=== PATIENT | female | born 1985 | race Caucasian/White ===

== ENCOUNTER 2016-07-01 16:44 | Inpatient (IN) | payer OTHER ==
[~2016-07-01] VITALS: Ht 149.9 cm; Wt 83.9 kg
[2016-07-01] MEDS: Misoprostol 25 mCg/0.25 Tablet VAGINAL SCH ×2 (01:27→20:24)
[2016-07-01 17:10] LABS: Mean Corpuscular Hemoglobin 27.7 pg (27.0-35.0); Mean Corpuscular Volume 84.2 fL (81-100)
[2016-07-01] MEDS ORDERED: fentaNYL-PF 50 mCg/mL 2 mL Inj IVPUSH PRN (19:30)
[2016-07-01] MEDS ORDERED: Oxytocin 10 Unit/mL Inj IM PRN (19:30)
[2016-07-01] MEDS ORDERED: Sodium Chloride LOK Flush 10 mL Syringe IVFLUSH PRN (19:30)
[2016-07-01] MEDS ORDERED: Oxytocin 30 Units/500 mL LR 30 UNITS in IV Premix 1 EACH IV PRN (19:30)
[2016-07-01] MEDS ORDERED: Lactated Ringer's 1,000 ML IV PRN (19:30)
[2016-07-01] MEDS ORDERED: diphenhydrAMINE 50 mg Capsule PO PRN (19:30)
[2016-07-01] MEDS ORDERED: Hemorrhage Kit, Post Partum XX ONE (19:30)
[2016-07-01] MEDS ORDERED: Methylergonovine 0.2 mg/mL Inj IM PRN (19:30)
[2016-07-01] MEDS ORDERED: Ondansetron 2 mg/mL 2 mL Inj IVPUSH PRN (19:30)
[2016-07-01] MEDS ORDERED: Carboprost 250 mCg/mL Inj IM PRN (19:30)
[2016-07-01 19:58] LABS: Mean Corpuscular Hemoglobin 27.9 pg (27.0-35.0); Mean Corpuscular Volume 83.9 fL (81-100)
[2016-07-01] MEDS ORDERED: PREN1TAB25 PO (20:01)
[2016-07-02] MEDS: Misoprostol 25 mCg/0.25 Tablet VAGINAL SCH ×2 (01:27→04:55)
[2016-07-02] MEDS: Lactated Ringer's 1,000 ML IV SCH ×3 (03:30→20:31)
[2016-07-02 08:21] LABS: Mean Corpuscular Hemoglobin 27.5 pg (27.0-35.0); Mean Corpuscular Volume 83.7 fL (81-100)
--- NOTE | 2016-07-02 08:49 | PCM.HPOB ---
Subjective Date of Service: Jul 02, 2016 Referring Provider: Admitting Physician: Andreina Ugalde MD Primary Care Physician: Andreina Ugalde MD Attending Physician: Andreina Ugalde MD Chief Complaint Preeclampsia, 37 weeks gestation History of Present History of Present Illness Carmen is a 31 year-old female at 37wks 1days per first trimester ultrasound with a history of elevated blood pressure starting at 14 weeks . A 24 hour urine protein was negative at that time and the patient's BP attributed to chronic hypertension or white coat hypertension without superimposed preeclampsia. She is not taking anything to treat hypertension. She remained asymptomatic her with fluctuating blood pressure readings and scheduled for bi-weekly NSTs and biophysical profile every two weeks. However, a UA in clinic showed proteniuria and a protein/creatinine ratio was consistent with superimposed pre-eclampsia. Subsequently she was scheduled for induction on 07/02/16. Past Medical History Obstetrical History: Previous spontaneous at 5 weeks gestation Gynecologic History: Describes having regular menses, previously on oral control pills Medical History: Denies any other medical conditions other than preeclampsia Surgical History: Denies any surgical history Social History: Lives with . Hx Tobacco Use: No Smoking Status: Never Smoker Hx Alcohol Use: No Hx Substance Use: No Past Family History Family History Maternal grandfather had cardiovascular disease Maternal grandmother had renal cell cancer at 76 years old Mother hypertension Paternal aunt had breast cancer Paternal grandfather colon cancer Living Arrangement: with Family Genetic Screening/Counseling Baby father-had child w defect: No Review of Systems Constitutional: Y: Chills, Fever Eyes: Denies: Blurred Vision ENT: Denies: Membranes Dry, Throat Pain Cardiovascular: Denies: Chest Pain Respiratory: Denies: Cough Gastrointestinal: Denies: Abdominal Pain, Diarrhea, Nausea, Vomiting Genitourinary: Denies: Dysuria Neurological: Denies: Dizziness, Numbness, Seizures Psychologic: Denies: Agitation Medications Home medications vitamin Allergy Coded Allergies: No Known Allergies (Unverified , 06/11/16) Exam Vital Signs 114/71, 97.9, 67, 16 respirations per minute Exam Irregular contractions 140 bpm Baseline Moderate variability Type I tracing Objective Laying in bed, no apparent distress. Constitutional: Well-developed, Well-nourished, Normal habitus HEENT: Atraumatic, PERRLA, EOMI Lungs: Clear to Auscultation Heart: Regular Rate/Rhythm, Normal S1, Normal S2, No Murmurs/Rubs/Gallops Abdomen: Gravid, No tenderness Extremities: Pulses Palpable x4, Edema Neurological/Psychiatric: Alert, Oriented X3, Cooperative, No Acute Distress Neuro: Strength at 5/5 x4 ext, Other (+3 patellar reflexes) Additional Information Medium consistency, 1.5 cm dilated, 60% effaced, -1 station. Labs/Diagnostics Labs WBC 11.6 hemoglobin 11.1 platelets 296 Protein creatinine ratio on 01/23/2017 was elevated at 320 Ultra Sound Biophysical profile performed 06/18/2016 was read as being normal. Ultrasound on 03/02/2016 showed an EFW at 99th percentile, anatomic survey was read as being normal with poor visualization of the cardiac outflow tracts, follow-up ultrasound revealed normal visualization of the cardiac outflow tracts. Lab/Diagnostic Information Patient lab work O+ Rubella immune RPR and HIV nonreactive Hepatitis B surface antigen negative GCT C negative GBS negative diabetes screen negative Maternal Blood Type: O Group B Strep Results: Negative Previous Infant with GBS: No Rubella: Immune Lab History: Negative for: Hx Gonorrhea, Hx HIV, Hx Herpes, Hx Syphilis OB Intrapartum Assessment/Plan Assessment 31-year-old woman with preeclampsia, found to have variable accelerations on an outpatient NST, and subsequently admitted to the [facility] for induction and augmentation. Problems: (1) Chronic hypertension with superimposed pre-eclampsia Status: Acute ICD Code: O11.9 Pain Management: Oral analgesics as needed Epidural if and when requested Pain Evaluation: Adequate Pain Control VTE Mechanical Devices: Intermittant Pneumatic CD Intrapartum plan Continue with induction and augmentation. Cervical balloon placed With 60 mL. Encourage ambulation Attending Statement The patient was seen and examined together with Dr. Blood on 07/02/2016 at 07 :30 and I agree with the history, exam and plan as outlined in the note above. I placed a Simmons balloon. Her Cervix is 1.5cm. Category 1 tracing. No severe range BPs requiring treatment. No indication for magnesium for seizure prophylaxis. Will continue daily preE labs. The patient will desire and epidural. Plan to notify anesthesia. / MD Caitie Martin Noah M DO Jul 02, 2016 08:11 Vernon Rosen MD Jul 02, 2016 17:19
[2016-07-02] MEDS ORDERED: Oxytocin 30 Units/500 mL LR 30 UNITS in IV Premix 1 EACH IV PRN (10:15)
[2016-07-02] MEDS ORDERED: fentaNYL 2 mCg/mL-Bupivicaine 0.125% 100 mL Premix EPIDURAL ONE ×2 (15:04→23:59)
--- NOTE | 2016-07-02 15:58 | PCM.HPANE ---
Patient Data Surgeon Admitting Provider:Andreina Ugalde MD Attending Provider:Andreina Ugalde MD Primary Care Physician:Andreina Ugalde MD Other Provider:Demetrio Concepcion Anesthesia Reason for Visit Admit For Induction ADMIT FOR INDUCTION Ht/WT & BMI Body Mass Index Allergies Coded Allergies: No Known Allergies (Unverified , 06/11/16) Diabetes History Hx Diabetes?: No MRSA MRSA: No Medications Reported Medications Vit#96/Ferrous Fum/FA ( Tablet)1 Each Tablet1 Each PO DAILY 07/01/16 History History of ENT Problems?: No Hx of Heart Problems?: Yes Other History/Comments Pre -eclampsia superimposed on undiagnosed HTN, at term for induction at 5 cm Hx of Respiratory Problem?: No Hx Neurologic Problems?: No Hx of GI Problems?: No Hx of Problems?: No Female Hx: Positive for:: Currently Hx Musculoskeletal Problems?: No Hx of Psycho/Social Problems?: No Hx Surgeries?: No Hx Any Other Health Problems?: No Hx Alcohol Use: NoHx Substance Use: No Smoking Status: Never Smoker Stop/Bang Risk Assessment Category Category 1A: Patient has history of documented sleep apnea, and HAS NOT received any narcotic, sedative or anesthesia administration during this stay. Category 1B: Patient has history of documented sleep apnea, and HAS received any narcotic , sedative or anesthesia administration during this stay Category 2: Patient has SUSPECTED Obstructive Sleep Apnea, and HAS received any narcotic , sedative or anesthesia administration during this stay. Category 3: Patient has SUSPECTED Obstructive Sleep Apnea and HAS NOT received narcotic, sedative or anesthesia administration during this stay. Category 4: Outpatient in Procedural Areas with known sleep apnea or who screen positive for High Risk via the STOP/BANG questionnaire. Exam Exam General Appearance: Alert, Oriented X3, Cooperative, Mild Distress HEENT/AIRWAY: MP 2 Lungs: Clear to Auscultation Heart: Exam Unremarkable Meds/Labs/Diagnostics Admission Meds Current Medications Lactated Ringer's (Lr) 1,000 ml @ 125 mls/hr Q8H IV Last administered on t 03:30; Start 07/01/16 at 19:30 Misoprostol (Cytotec) 25 mcg Q4H VAGINAL Last administered on 07/02/16 04:55; Start 07/01/16 at 19:30 Labs Test 07/02/16 08:10 White Blood Count 13.5th/mm3 (3.8-10.1) Red Blood Count 4.29mil/mm3 (3.90-5.20) Hemoglobin 11.8g/dL (12.0-15.6) Hematocrit 35.9% (35.0-46.0) Mean Corpuscular Volume 83.7fL (81-100) Mean Corpuscular Hemoglobin 27.5pg (27.0-35.0) Mean Corpuscular Hemoglobin Concent 32.9% (32.0-37.0) Red Cell Distribution Width 12.9% (12.3-15.4) Platelet Count 283bil/L (150-400) Sodium Level 133mEq/L (134-144) Potassium Level 4.1mEq/L (3.5-5.2) Chloride Level 99mEq/L (97-108) Carbon Dioxide Level 22mmol/L (18-29) Blood Urea Nitrogen 5mg/dL (6-20) Creatinine 0.44mg/dL (0.57-1.00) Estimat Glomerular Filtration Rate 240mL/min (>59) Glucose Level 89mg/dL (60-99) Calcium Level 8.6mg/dL (8.5-10.1) Total Bilirubin 0.2mg/dL (0.0-1.2) Aspartate Amino Transf (AST/SGOT) 17U/L (0-50) Alanine Aminotransferase (ALT/SGPT) 8U/L (0-32) Alkaline Phosphatase 108U/L (25-150) Total Protein 5.8g/dL (6.4-8.4) Albumin 3.1g/dL (3.4-5.0) Plan Impression Patient chart reviewed, patient interviewed and anesthestic plan with risks, benefits, and alternatives discussed, and informed consent obtained. ASA Physical Status: ASA3 Severe Disease Anesthetic Plan: Epidural Bene/Risks/Altern/Consents: Yes HP Complete Prior to Induction: Yes (H&P done prior to placemnt of epidural, documented after epidural placement) Blue Burks MD Jul 02, 2016 15:58
--- NOTE | 2016-07-02 15:59 | PCM.ANEP1 ---
Post Anesthesia Phase 1 PACU Phase 1 Assessment Date of Service: Jul 02, 2016 Anesthetic Administered: Epidural Level of Alertness: Awake, talking MAI's with Equal Strength: No Pain: No Pain Scale Score: 0 Nausea or Vomiting: No Oxygen Delivery: Room Air Lungs: Clear to Auscultation Dermatome Level: T6 (Xyphoid Process) Summary Pain free Blue Burks MD Jul 02, 2016 15:59
--- NOTE | 2016-07-02 17:25 | PCM.PNOBIP ---
Subjective Date of Service Jul 02, 2016 Delivery plan: Spontaneous Vaginal Delivery Visit History Carmen is a 31 year-old female at 37wks 1days with CHTN and superimposed preE here for IOL. She was given cytotec x 3 overnight and a cervical ripening balloon. She is not on pitocin. AROM performed at about 1pm with clear copious fluid. Epidural started after. Subjective Comfortable with epidural Group B Strep Results: Negative Rubella: Immune Blood Type: O Labs Laboratory Tests 07/02/16 08:10: White Blood Count 13.5, Red Blood Count 4.29, Hemoglobin 11.8, Hematocrit 35.9, Mean Corpuscular Volume 83.7, Mean Corpuscular Hemoglobin 27.5, Mean Corpuscular Hemoglobin Concent 32.9, Red Cell Distribution Width 12.9, Platelet Count 283 Exam Vital Signs Vital Signs Vital Signs Date Time Temp Pulse Resp B/P Pulse Ox O2 Delivery O2 Flow Rate FiO2 07/02/16 15:59 Room Air Contraction frequency in minutes: MVUs: Vital Signs: VS reviewed, stable (135/83 94 98%) Heart Tracings Heart Tones Baseline 140 bpm Heart Rate Variability: Moderate Heart Rate Accelleration: Present (with FSE placement (scalp stimulation) ) Heart Rate Deceleration: Present (Late decelerations following epidural, resolved with position change ) Heart Rate Category: II Tocometry/IUPC Contraction frequency in minutes: MVUs: Sterile Vaginal Exam Cervical Dilation: 5 cms Cervical Effacement: 90 % Station: -1 Exam General: Alert, Oriented X3, Cooperative, Mild Distress OB Intrapartum Assessment/Plan Assessment 31 y/o G1 at 37w1d here for IOL for CHTN with superimposed preE Problems: (1) Chronic hypertension with superimposed pre-eclampsia Plan: -Category 2 tracing - will monitor closely - the late decelerations appear to have resolved. FSE placed. Will give more IV hydration. -No need for BP treatment at this time. No concerning features that would be severe requiring magnesium at this time. Status: Acute ICD Code: O11.9 Pain Evaluation: Adequate Pain Control VTE Mechanical Devices: Intermittant Pneumatic CD Vernon Rosen MD Jul 02, 2016 17:25
[2016-07-03] MEDS ORDERED: LANOlin HPA 7 Gm Ointment TOPICAL PRN (01:25)
[2016-07-03] MEDS ORDERED: Benzocaine (Dermoplast) 20% 60 Gm Spray TOPICAL PRN (01:25)
[2016-07-03] MEDS ORDERED: Oxytocin 30 Units/500 mL LR 30 UNITS in IV Premix 1 EACH IV PRN (01:25)
[2016-07-03] MEDS ORDERED: Oxytocin 10 Unit/mL Inj IM PRN (01:25)
[2016-07-03] MEDS ORDERED: Hemorrhage Kit, Post Partum XX ONE (01:25)
[2016-07-03] MEDS ORDERED: Methylergonovine 0.2 mg/mL Inj IM PRN (01:25)
[2016-07-03] MEDS ORDERED: HYDROcodone-APAP 5-325 mg Tablet PO PRN (01:25)
[2016-07-03] MEDS ORDERED: Witch Hazel-Glycerin Pads TOPICAL PRN (01:25)
[2016-07-03] MEDS ORDERED: Carboprost 250 mCg/mL Inj IM PRN (01:25)
--- NOTE | 2016-07-03 02:12 | PCM.OBVAG ---
Vaginal Delivery Date of Service Jul 03, 2016 Pre Operative Diagnosis Pre Operative Diagnosis Term Chronic HTN with superimposed pre-eclampsia Post Operative Diagnosis Post Operative Diagnosis Term Chronic HTN with superimposed pre-eclampsia Maternal fever during delivery Procedure Obstetical Procedure: Normal Spontaneous Vaginal Delivery, Repair of Perineal Tear (2nd degree), Other (Repair of labial tear) Manager Agency/Guest Services Coordinator Provider and Guest Services Coordinator: Attending Physician: Vernon Rosen MD Resident: Juju España DO, PGY-1 Indication for Procedure Induction: Induction of labor, AROM Findings Obstetrical Findings: (Female), Cord (3 Vessel), Weight ( 6lbs 9oz), Presentation (GRECIA), 1 minute (6), 5 minutes (7), 10 minutes (9), Placenta (Intact/Normal), Perineal Laceration (2nd degree) Analgesia/Medications Obstetrical Anesthesia: Epidural Procedure Details Procedure Details Patient is a 31 y/o now P1 who presented to Labor and Delivery at 37w1d on the evening of 07/01/16 for induction of labor for chronic hypertension with superimposed pre-eclampsia. She was given cytotec x 3 overnight and a cervical ripening balloon. AROM performed at about 1pm with clear copious fluid. She desired an epidural and one was placed. She was GBS negative and did not receive antibiotics prior to starting induction with oxytocin. She made normal progress through labor and was found to be complete about 23:20. She began pushing and late decelerations noted on FHT, which were monitored closely and improved with IV hydration. FSE placed. FHR was baseline 130s-140s with some early decelerations and a few decelerations. Patient's BP remained stable and did not require antihypertensive medication or magnesium. She developed fever in the last 30-40minutes of labor with Tmax 37.9. A sterile drape was placed under the patient's buttocks and with expulsive efforts, she delivered head over an intact perineum. No nuchal cord. The rest of the body was delivered. The baby was placed on maternal abdomen, skin to skin. Warming and stimulating maneuvers were applied. After a minute, the cord was clamped, and cut. The was delivered at 01:30. The placenta then delivered spontaneously intact at 01:40 with a three vessel cord. Uterus firmed with manual external massage. The perineum was examined and there was a 2nd degree tear as well as a right labial tear identified and repaired with 3-0 vicryl in the usual fashion. Sponge and instrument counts were correct x2 at the close of the procedure. The patient and infant tolerated the procedure well and pt is stable in her room. Specimen Specimens: Placenta Blood Loss & Administration Blood Admin during procedure: No Post Procedure Plan Post Procedure Plan Continue routine post- care. Post delivery Condition: Mom stable VTE Prophylaxis: SCDs Attending Statement The patient was delivered together with Dr. España on 07/03/2016 and I agree with the note above. I was present for the entire procedure and personally performed the laceration repair. / mD Patria Martin Courtney M DO Jul 03, 2016 02:06 Vernon Rosen MD Jul 09, 2016 09:38
[2016-07-03 07:05] LABS: BASOPHILS % (AUTO) 0.1 % (0-3); EOSINOPHILS % (AUTO) 0 % (0-5); MONOCYTES % (AUTO) 4.9 % (4-12); Mean Corpuscular Hemoglobin 28.2 pg (27.0-35.0); Mean Corpuscular Volume 83.5 fL (81-100); NEUTROPHILS % (AUTO) 86.3 % (40-74); Platelet Count 272 bil/L (150-400)
--- NOTE | 2016-07-03 09:05 | PCM.PNOBPP ---
Subjective Date of Service Jul 03, 2016 Post : Spontaneous Vaginal Delivery Visit History Carmen is a 31 year-old now female at 37wks 1days per first trimester ultrasound with a history of elevated blood pressure starting at 14 weeks . A 24 hour urine protein was negative at that time and the patient's BP attributed to chronic hypertension or white coat hypertension without superimposed preeclampsia. She is not taking anything to treat hypertension. She remained asymptomatic her with fluctuating blood pressure readings and scheduled for bi-weekly NSTs and biophysical profile every two weeks. However, a UA in clinic showed proteniuria and a protein/creatinine ratio was consistent with superimposed pre-eclampsia. Subsequently she was scheduled for induction on 07/02/16. She was given cytotec x 3 overnight and a cervical ripening balloon. AROM performed at about 1pm with clear copious fluid. She desired an epidural and one was placed. She was GBS negative and did not receive antibiotics prior to starting induction with oxytocin. She made normal progress through labor and was found to be complete about 23:20. She began pushing and late decelerations noted on FHT, which were monitored closely and improved with IV hydration. FSE placed. FHR was baseline 130s-140s with some early decelerations and a few decelerations. Patient's BP remained stable and did not require antihypertensive medication or magnesium. She developed fever in the last 30- 40minutes of labor with Tmax 37.9. was delivered at 01:30. The placenta then delivered spontaneously intact at 01:40 with a three vessel cord. Subjective Patient states she is doing well this morning, she describes not being in pain not controlled with oral analgesics. She has been able to get up and use the restroom. She has had flatus. Lochia: Normal Pain Management: PO pain meds Gastrointestinal: Passing Flatus Postop Activity: Ambulating Independently Group B Strep Results: Negative Rubella: Immune Blood Type: O Labs Laboratory Tests 07/03/16 06:50: White Blood Count 19.3, Red Blood Count 3.58, Hemoglobin 10.1, Hematocrit 29.9, Mean Corpuscular Volume 83.5, Mean Corpuscular Hemoglobin 28.2, Mean Corpuscular Hemoglobin Concent 33.8, Red Cell Distribution Width 12.8, Platelet Count 272, Neutrophils (%) (Auto) 86.3, Lymphocytes (%) (Auto) 8.3, Monocytes (% ) (Auto) 4.9, Eosinophils (%) (Auto) 0, Basophils (%) (Auto) 0.1 Exam Vital Signs Vital Signs 133/87, 109 bpm, 14 respirations per minute, 37.5C. She had a MAXIMUM TEMPERATURE this AM of 38.4 Vital Signs: VS reviewed, concerns are (continues to have elevated blood pressure with diastolics in the 90s.) Exam Abdomen: Fundus firm, Abdomen soft, Abdomen appropriately tender : Voiding without difficulty (patient is voiding appropriately volumes, she is at -150ml (total -450 mL since ) since midnight) Extremities: No cords Lungs: Clear to Auscultation, Normal Air Movement Heart: Regular Rate/Rhythm, Normal S1, Normal S2, No Murmurs/Rubs/Gallops General: Alert, Oriented X3, Cooperative, No Acute Distress OB Post Assessment/Plan Assessment 31-year-old female status post induction, completion of vaginal delivery, day 0, recovering well. Preeclampsia hypertension, superimposed preeclampsia. Lab work today appears reassuring, creatinine 0.71 yesterday, 0.70 today Leukocytosis She had an increase in her white blood cells from 13.5 yesterday morning to 19 with left shift this a.m. Increase leukocytosis, intrapartum fever, elevated heart rate and tachycardia documented, Problems: (1) Chronic hypertension with superimposed pre-eclampsia Status: Acute ICD Code: O11.9 (2) Maternal fever during labor, delivered Status: Acute ICD Code: O75.2 Pain Evaluation: Adequate Pain Control VTE Mechanical Devices: Intermittant Pneumatic CD Post plan: Continue routine post care, Discharge home tomorrow, Other (will continue to monitor vital signs and subjective complaints for signs of infection. Recheck labs tomorrow a.m.) Plan: Hypertension Plan: Continue to monitor urine output, recheck creatinine tomorrow. Monitor blood pressure if continues to be elevated started on oral antihypertensives. Leukocytosis Plan: will continue to monitor vital signs and subjective complaints for signs of infection. Recheck labs tomorrow a.m. Attending Statement The patient was seen and examined together with Dr. Bossman Fernandes DO on 2016 and I agree with the history, exam and plan as outlined in the note above. Bossman Blood DO Jul 03, 2016 09:05 Ronda Sosa MD Jul 03, 2016 22:01
[2016-07-04 06:59] LABS: BASOPHILS % (AUTO) 0.1 % (0-3); EOSINOPHILS % (AUTO) 0.6 % (0-5); MONOCYTES % (AUTO) 6.6 % (4-12); Mean Corpuscular Volume 85.9 fL (81-100); NEUTROPHILS % (AUTO) 69.8 % (40-74); Platelet Count 244 bil/L (150-400)
--- NOTE | 2016-07-04 10:27 | PCM.DIOB ---
Obstetrical Disch Instruction Date of Service: Jul 04, 2016 Dates of Hospitalization Date of Hospital Admission Jul 01, 2016 at 19:24 Providers Admitting Physician: Andreina Ugalde MD Primary Care Physician: Andreina Ugalde MD Attending Physician: Andreina Ugalde MD Discharge Diagnosis Discharge Diagnosis Status post normal vaginal delivery Hypertension with superimposed preeclampsia Anemia Problems: (1) Chronic hypertension with superimposed pre-eclampsia Status: Acute ICD Code: O11.9 (2) Maternal fever during labor, delivered Status: Resolved ICD Code: O75.2 Diet Discharge Diet: Heart Healthy Activity Discharge Activity-General: Pelvic Rest for 6 weeks (No sex, no douching and no tampons ), Balance rest and activity, No lifting >10 pounds for 4-6 weeks Dressing and Incisional Care Hygiene: May shower, Perineal care, Sitz bath, Dermoplast spray, Witch Evelyne pads, Ice Follow Up Plan Follow-up Provider (F9): Andreina Ugalde MD Follow-up appointment: Days (in 2 days a Nurse visit for Blood pressure check ) , Weeks (With OBGYN Provider ) Call your provider for: Fever or Chills, Shortness of breath, Heavy vaginal bleeding, Heavy bleeding, Epigastric pain, Excessive constipation, Vaginal discomfort, Red painful breasts (Headache, change in vision, nausea or vomiting , leg swelling or pain ) Jeremy Anthony MD Jul 04, 2016 10:27
[2016-07-04] MEDS ORDERED: FERR-83 PO (10:31)
[2016-07-04] MEDS ORDERED: HYDR-4003 PO (10:31)
[2016-07-04] MEDS ORDERED: Lanolin TOPICAL (10:31)
[2016-07-04] MEDS ORDERED: ASCO250T7 PO (10:31)
[2016-07-04] MEDS ORDERED: DOCU-41 PO (10:31)
[2016-07-04] MEDS ORDERED: IBUP-1827 PO (10:32)
[2016-07-04] MEDS ORDERED: Acetaminophen PO (10:55)
--- NOTE | 2016-07-04 12:03 | PCM.DC.OB ---
Obstetrical Discharge Summary Date of Service Jul 04, 2016 Date of hospital admission Jul 01, 2016 at 19:24 Date of Discharge: Jul 04, 2016 Providers Admitting Physician: Andreina Ugalde MD Primary Care Physician: Andreina Ugalde MD Attending Physician: Andreina Ugalde MD Diagnosis at Time of Discharge Status post normal vaginal delivery Chronic Hypertension with superimposed preeclampsia Anemia Maternal fever during labor, delivered Status: Resolved Problems: (1) Chronic hypertension with superimposed pre-eclampsia Status: Acute ICD Code: O11.9 (2) Maternal fever during labor, delivered Status: Resolved ICD Code: O75.2 (3) Anemia, Status: Acute ICD Code: O90.81 (4) (normal spontaneous vaginal delivery) Status: Acute ICD Code: O80 Brief History and Physical: Patient is a 31 y/o now P1 who presented to Labor and Delivery at 37w1d on the evening of 07/01/16 for induction of labor for chronic hypertension with superimposed pre-eclampsia. After three doses of cytotec and a cervical ripening balloon. AROM performed at about 1pm 07/02/16 with clear fluid followed by oxytocin to deliver via NVD on 07/03/16 at 1:30 am under epidural anaesthesia. Outcome: Dowell (Female), Cord (3 Vessel), Weight ( 6lbs 9oz), Presentation (GRECIA), 1 minute (6), 5 minutes (7), 10 minutes (9 ), Placenta (Intact/Normal), Perineal Laceration (2nd degree). See delivery note for details. Hospital Course: 31 Y/O 1. PPD#1 NVD and second degree laceration repair. 2. Chronic HTN with superimposed preeclampsia Systolic BP (112-142) mostly in 135's and Diastolic BP (69-94) mostly 85's since delivery. One elevated BP reading before discharge 157/103 Repeat BP 121/77. Preeclampsia labs WNL except for Creatinine initially was trending up from 0.5 to 0.7 and repeat creatinine today 0.58 Discussed with patient to hold discharge and continue monitoring overnight and possibly starting antihypertensive medications if BP was to rise up again. Patient desires discharge home today and states she will be able to rest at home and that she will not have visitors. Patient states she will be able to monitor her BP at home every 6 hours. Patient home sphenometer was tested for accuracy at the office before. Patient will follow up at the office for BP check on 07/06/16. Labetalol 100 mg BID prescription was given to be started if BP 150/100 at home. Call provider if BP 150/100 after staring the labetalol or go to emergency room. 3. Anemia started on iron 4. Fever resolved. Discharge Day Exam: Patient is ambulating, tolerating regular diet. Denies Headache, change in vision or epigastric pain. Lochia: Normal Pain Management: PO pain meds Gastrointestinal: Passing Flatus Voiding without difficulty Vital Signs Vital Signs Systolic BP (112-142) mostly in 135's and Diastolic BP (69-94) mostly 85's since delivery. T 36.8 , last elevated T 37.8 at 07/03/16 at 2:40 am. RR 16 Exam Abdomen: Fundus firm, Abdomen soft, No tenderness. Extremities: DTR+2 B/L no clonus. B/L Edema +2. Lungs: Clear to Auscultation, Normal Air Movement Heart: Regular Rate/Rhythm, Normal S1, Normal S2, No Murmurs/Rubs/Gallops General: Alert, Oriented X3, Cooperative, No Acute Distress Labs: Group B Strep Results: Negative Rubella: Immune Blood Type: O Labs Laboratory Tests 72 Hours Test 07/01/16 16:58 07/01/16 19:48 07/02/16 08:10 07/02/16 20:13 White Blood Count 11.8th/mm3 (3.8-10.1) 11.6th/mm3 (3.8-10.1) 13.5th/mm3 (3.8-10.1) Red Blood Count 4.04mil/mm3 (3.90-5.20) 3.98mil/mm3 (3.90-5.20) 4.29mil/mm3 (3.90-5.20) Hemoglobin 11.2g/dL (12.0-15.6) 11.1g/dL (12.0-15.6) 11.8g/dL (12.0-15.6) Hematocrit 34.0% (35.0-46.0) 33.4% (35.0-46.0) 35.9% (35.0-46.0) Mean Corpuscular Volume 84.2fL (81-100) 83.9fL (81-100) 83.7fL (81-100) Mean Corpuscular Hemoglobin 27.7pg (27.0-35.0) 27.9pg (27.0-35.0) 27.5pg (27.0-35.0) Mean Corpuscular Hemoglobin Concent 32.9% (32.0-37.0) 33.2% (32.0-37.0) 32.9% (32.0-37.0) Red Cell Distribution Width 12.6% (12.3-15.4) 12.7% (12.3-15.4) 12.9% (12.3-15.4) Platelet Count 309bil/L (150-400) 296bil/L (150-400) 283bil/L (150-400) Sodium Level 133mEq/L (134-144) 133mEq/L (134-144) 129mEq/L (134-144) Potassium Level 3.9mEq/L (3.5-5.2) 4.1mEq/L (3.5-5.2) 4.1mEq/L (3.5-5.2) Chloride Level 97mEq/L (97-108) 99mEq/L (97-108) 95mEq/L (97-108) Carbon Dioxide Level 22mmol/L (18-29) 22mmol/L (18-29) 19mmol/L (18-29) Blood Urea Nitrogen 8mg/dL (6-20) 5mg/dL (6-20) 8mg/dL (6-20) Creatinine 0.50mg/dL (0.57-1.00) 0.44mg/dL (0.57-1.00) 0.71mg/dL (0.57-1.00) Estimat Glomerular Filtration Rate 208mL/min (>59) 240mL/min (>59) 138mL/min (>59) Glucose Level 91mg/dL (60-99) 89mg/dL (60-99) 94mg/dL (60-99) Calcium Level 8.8mg/dL (8.5-10.1) 8.6mg/dL (8.5-10.1) 8.3mg/dL (8.5-10.1) Total Bilirubin 0.2mg/dL (0.0-1.2) 0.2mg/dL (0.0-1.2) Aspartate Amino Transf (AST/SGOT) 16U/L (0-50) 17U/L (0-50) Alanine Aminotransferase (ALT/SGPT) 9U/L (0-32) 8U/L (0-32) Alkaline Phosphatase 108U/L (25-150) 108U/L (25-150) Total Protein 6.5g/dL (6.4-8.4) 5.8g/dL (6.4-8.4) Albumin 3.4g/dL (3.4-5.0) 3.1g/dL (3.4-5.0) Test 07/03/16 06:50 07/04/16 06:38 White Blood Count 19.3th/mm3 (3.8-10.1) 10.5th/mm3 (3.8-10.1) Red Blood Count 3.58mil/mm3 (3.90-5.20) 3.11mil/mm3 (3.90-5.20) Hemoglobin 10.1g/dL (12.0-15.6) 8.7g/dL (12.0-15.6) Hematocrit 29.9% (35.0-46.0) 26.7% (35.0-46.0) Mean Corpuscular Volume 83.5fL (81-100) 85.9fL (81-100) Mean Corpuscular Hemoglobin 28.2pg (27.0-35.0) 28.0pg (27.0-35.0) Mean Corpuscular Hemoglobin Concent 33.8% (32.0-37.0) 32.6% (32.0-37.0) Red Cell Distribution Width 12.8% (12.3-15.4) 12.9% (12.3-15.4) Platelet Count 272bil/L (150-400) 244bil/L (150-400) Neutrophils (%) (Auto) 86.3% (40-74) 69.8% (40-74) Lymphocytes (%) (Auto) 8.3% (14-46) 22.5% (14-46) Monocytes (%) (Auto) 4.9% (4-12) 6.6% (4-12) Eosinophils (%) (Auto) 0% (0-5) 0.6% (0-5) Basophils (%) (Auto) 0.1% (0-3) 0.1% (0-3) Sodium Level 133mEq/L (134-144) 137mEq/L (134-144) Potassium Level 4.3mEq/L (3.5-5.2) 3.8mEq/L (3.5-5.2) Chloride Level 99mEq/L (97-108) 102mEq/L (97-108) Carbon Dioxide Level 19mmol/L (18-29) 24mmol/L (18-29) Blood Urea Nitrogen 9mg/dL (6-20) 8mg/dL (6-20) Creatinine 0.70mg/dL (0.57-1.00) 0.58mg/dL (0.57-1.00) Estimat Glomerular Filtration Rate 141mL/min (>59) 175mL/min (>59) Glucose Level 122mg/dL (60-99) 79mg/dL (60-99) Calcium Level 8.2mg/dL (8.5-10.1) 8.5mg/dL (8.5-10.1) Total Bilirubin 0.3mg/dL (0.0-1.2) 0.2mg/dL (0.0-1.2) Aspartate Amino Transf (AST/SGOT) 31U/L (0-50) 34U/L (0-50) Alanine Aminotransferase (ALT/SGPT) 10U/L (0-32) 14U/L (0-32) Alkaline Phosphatase 99U/L (25-150) 87U/L (25-150) Total Protein 4.9g/dL (6.4-8.4) 5.0g/dL (6.4-8.4) Albumin 2.7g/dL (3.4-5.0) 2.7g/dL (3.4-5.0) ([Lanolin]) 2 APPLIC/GM OINT 1 APPLIC TOPICAL PRN PRN PRN apply to nipples Prescribed by: RONY SANON MD ([Acetaminophen]) 325 MG TABLET 650 MG PO Every 6 hours PRN PRN For Mild Pain Prescribed by: RONY SANON MD Ascorbic Acid (Vitamin C) 250 Mg Tab.chew 250 MG PO BID Prescribed by: RONY SANON MD Docusate Sodium (Colace) 100 Mg Capsule 100 MG PO BID Prescribed by: RONY SANON MD Ferrous Sulfate (Ferrous Sulfate) 325 Mg Tablet 325 MG PO BID Prescribed by: RONY SANON MD Hydrocodone-Acetaminophen 5-325 mg (Hydrocodone-Acetaminophen 5-325 mg) 1 Each Tablet 1-2 TABLET PO Q4H PRN PRN For Pain Prescribed by: RONY SANON MD Labetalol (Labetalol) 100 Mg Tablet 100 MG PO BID Prescribed by: RONY SANON MD Vit#96/Ferrous Fum/FA ( Tablet) 1 Each Tablet 1 EACH PO DAILY ( Reported) Last Taken: Unknown Dose on 07/01/16 0800 Disposition Disposition: Home. Discharge condition: stable. Diet Discharge Diet: Heart Healthy Activity Discharge Activity-General: Pelvic Rest for 6 weeks (No sex, no douching and no tampons ), Balance rest and activity, No lifting >10 pounds for 4-6 weeks Dressing and Incisional Care Hygiene: May shower, Perineal care, Sitz bath, Dermoplast spray, Witch Evelyne pads, Ice Follow Up Plan Follow-up Provider (F9): Andreina Ugalde MD Follow-up appointment: Days (in 2 days a Nurse visit for Blood pressure check ) , then in 2 weeks (With OBGYN Provider ) Call your provider for: Fever or Chills, Shortness of breath, Heavy vaginal bleeding, Heavy bleeding, Epigastric pain, Excessive constipation, Vaginal discomfort, Red painful breasts (Headache, change in vision, nausea or vomiting , leg swelling or pain ) Rony Sanon MD Jul 04, 2016 10:27 Rony Sanon MD Jul 04, 2016 12:02
[2016-07-04 12:34] VITALS: BP 127/61; PULSE 67; RESP 18
[2016-07-04] MEDS ORDERED: LABE100T4 PO (12:53)
--- NOTE | 2016-07-06 11:22 | PATH ---
SURGICAL PATHOLOGY Attending Physician:Vernon Rosen MD CASE STATUS: Signed Out PATIENT NAME: ELIZABETH VELASQUEZ PID: [id number] : 1985 DATE COLLECTED:07/03/2016 14:52 SPECIMEN: Placenta CLINICAL HISTORY: PREECLAMPSIA, 37W, MATERNAL FEVER 1). PLACENTA FINAL DIAGNOSIS: 1.PLACENTA WITH UMBILICAL CORD AND MEMBRANES: 1. PLACENTA: 413 GRAMS, WHICH IS APPROXIMATELY THE 40TH PERCENTILE FOR 37 WEEKS GESTATION. MULTIPLE INFARCTS INVOLVING APPROXIMATELY 20% OF THE SURFACE. Negative for significant inflammation. 2.UMBILICAL CORD: 14.2 CM IN LENGTH WITH THREE NORMAL BLOOD VESSELS. CORD IS ATTACHED 1.6 CM FROM THE PLACENTAL EDGE. Negative for significant inflammation. 3. MEMBRANES: MEMBRANES RUPTURED 3.2 CM FROM THE FREE PLACENTAL EDGE. Negative for significant inflammation. ICD10 code O14.04 GROSS DESCRIPTION: The specimen is received in formalin, labeled with the patient's name and consists of an placenta and includes placental disc (413 g, 18.2 x 15.5 x 2.5 cm) and membranes. The umbilical cord (length-14.2 cm, diameter-up to 1.8 x 1.4 cm) is received detached. The membranes are ruptured 3.2 cm from the free edge of the placenta and are thick and semi-translucent. The umbilical cord attachment site is 1.6 cm from the edge of the placenta. The umbilical cord is focally edematous and contains 3 vessels. The surface is smooth and shiny with multiple pale nodular areas (0.8 x 0.5 x 0.2 cm-3.5 x 1.5 x 0.2 cm) involving approximately 20% of the surface. No evidence of meconium is identified. The maternal surface is dark maroon with normal cotyledon formation. The placental disc is spongy with no hematomas, infarcts, nodules, masses, or lesions. Section code: (A) edge of placenta with membranes, umbilical cord; (B-D) placenta, 3 full thickness sections; (E) additional nodular tissue, contact representative. 07/04/16 JM MICRO DESCRIPTION: See diagnosis. ICD-9 CODES: CPT CODES: 1: 26554 Electronically Signed Out Jerel Sterling MD [facility] [address], [place] [address] Technical component performed at [facility], [address], [place], [address]
== END 2016-07-04 13:03 | disposition home or self-care (01) | DRG 774 ==
LOC: FBCO 16:44 → FBC 19:24
PROVIDERS: ADMIT Obstetrics & Gynecology; ATTEND Obstetrics & Gynecology
PROC: 3E0P7GC Introduction of Other Therapeutic Substance into Female Reproductive, Via Natural or Artificial Opening (ICD-10-PCS; 2016-07-02)
PROC: 10H07YZ Insertion of Other Device into Products of Conception, Via Natural or Artificial Opening (ICD-10-PCS; 2016-07-02)
PROC: 10E0XZZ Delivery of Products of Conception, External Approach (ICD-10-PCS; principal; 2016-07-03)
PROC: 0UQMXZZ Repair Vulva, External Approach (ICD-10-PCS; 2016-07-03)
PROC: 0KQM0ZZ Repair Perineum Muscle, Open Approach (ICD-10-PCS; 2016-07-03)
PROC: 10907ZC Drainage of Amniotic Fluid, Therapeutic from Products of Conception, Via Natural or Artificial Opening (ICD-10-PCS; 2016-07-03)
DX: O11.4 Pre-existing hypertension with pre-eclampsia, complicating childbirth (principal); O75.2 Pyrexia during labor, not elsewhere classified; O70.1 Second degree perineal laceration during delivery; O71.82 Other specified trauma to perineum and vulva; O76 Abnormality in fetal heart rate and rhythm complicating labor and delivery; O90.81 Anemia of the puerperium; D64.9 Anemia, unspecified; Z3A.37 37 weeks gestation of pregnancy; Z37.0 Single live birth